=== PATIENT | male | born 1950 | race Two or more races ===

== ENCOUNTER 2019-04-05 10:28 | Emergency (ER) | payer OTHER ==
[~2019-04-05] VITALS: Ht 175.3 cm; Wt 96.6 kg
[2019-04-05] MEDS ORDERED: CRESTOR40 MG PO (10:37)
[2019-04-05] MEDS ORDERED: AVAPRO300 MG PO (10:37)
[2019-04-05] MEDS ORDERED: AMLODIPINE BESYL5 MG PO (10:38)
[2019-04-05] MEDS ORDERED: TIROSINT75 MCG PO (10:38)
== END 2019-04-05 14:13 | disposition home or self-care (01) ==
LOC: ER 10:28
DX: S00.12XA Contusion of left eyelid and periocular area, initial encounter (principal); W18.09XA Striking against other object with subsequent fall, initial encounter; Y93.89 Activity, other specified; Y92.098 Other place in other non-institutional residence as the place of occurrence of the external cause; Y99.8 Other external cause status